=== PATIENT | female | born 1995 | race Two or more races ===

== ENCOUNTER 2024-03-03 11:26 | Emergency (ER) | payer OTHER ==
[~2024-03-03] VITALS: Ht 160 cm; Wt 52.2 kg
[2024-03-03] MEDS ORDERED: AMOX1TAB5 PO (15:47)
[2024-03-03] MEDS ORDERED: CEFTRIAXONE SODIUM 1,000 MG VIAL IM STA (15:49)
[2024-03-03] MEDS ORDERED: CEFTRIAXONE SODIUM 1,000 MG VIAL ONE (16:17)
[2024-03-03] MEDS ORDERED: LIDOCAINE HCL 1% 10ML VIAL ONE (16:17)
== END 2024-03-03 17:05 | disposition home or self-care (01) ==
LOC: ER 11:28
DX: N75.0 Cyst of Bartholin's gland (principal)